=== PATIENT | female | born 1965 | race Caucasian/White ===

== ENCOUNTER 2017-04-13 02:49 | Emergency (ER) | payer OTHER ==
[2017-04-13 02:57] VITALS: TEMP 97.5
[2017-04-13] MEDS ORDERED: ONDANSETRON 4 MG/2 ML VIAL ONE (02:59)
[2017-04-13] MEDS ORDERED: NS 1,000 ML IV ONE ×2 (03:02→04:23)
[2017-04-13] MEDS ORDERED: ONDANSETRON 4 MG/2 ML VIAL IVP ONE (03:02)
[2017-04-13] MEDS ORDERED: HALOPERIDOL LACT 5 MG/ML INJ ONE (04:03)
[2017-04-13] MEDS ORDERED: HALOPERIDOL LACT 5 MG/ML INJ IVP ONE (04:22)
[2017-04-13 05:12] VITALS: RESP 16
--- NOTE | 2017-04-13 05:42 | EDPHY ---
H & P Stated Complaint: intoxicated, nauseated HPI/ROS: HPI The patient presents with nausea and vomiting after drinking heavily tonight. The patient had multiple alcoholic beverages throughout the course of the evening. Over the last few hours she is began vomiting and has felt very nauseated. The vomiting is nonbloody and nonbilious. It has been constant and is rated as severe. She has not had abdominal pain or fever. REVIEW OF SYSTEMS Constitutional: No fever, no chills. Eyes: No discharge. ENT: No sore throat. Cardiovascular: No chest pain, no palpitations. Respiratory: No cough, no shortness of breath. Gastrointestinal: See HPI Genitourinary: No hematuria. Musculoskeletal: No back pain. Skin: No rashes. Neurological: No headache. PMHx: Reported history of bronchitis in Lyme disease Soc Hx: Alcohol abuse PHYSICAL General Appearance: Alert, actively retching Eyes: Pupils equal and round no pallor or injection ENT, Mouth: Mucous membranes moist Respiratory: There are no retractions, lungs are clear to auscultation Cardiovascular: Regular rate and rhythm Gastrointestinal: Abdomen is soft and non-tender, no masses, bowel sounds normal Neurological: A&O, moves all extremities Skin: Warm and dry, no rashes Musculoskeletal: Neck is supple non tender Extremities: symmetrical, full range of motion Psychiatric: Patient is oriented X 3, there is no agitation Source: Patient Exam Limitations: No limitations - Personal History LMP (Females 10-55): Over 28 Days Ago Current Tetanus/Diphtheria Vaccine: Yes - Medical/Surgical History Hx Asthma: No Hx Chronic Respiratory Disease: No Hx Diabetes: No Hx Cardiac Disease: Yes Hx Renal Disease: No Hx Cirrhosis: No Hx Alcoholism: Yes Hx HIV/AIDS: No Hx Splenectomy or Spleen Trauma: No Other PMH: Bronchitis and pneumonia off and on. Has had the flu in the past. Has 2 bicuspid valves instead of 3. Intermittent stomach issues. Has had Lyme disease. - Social History Smoking Status: Never smoked Constitutional: Initial Vital Signs Temperature (C) 36.4 C 04/13/17 02:50 Heart Rate 65 04/13/17 02:50 Respiratory Rate 14 04/13/17 02:50 Blood Pressure 107/68 04/13/17 02:50 O2 Sat (%) 98 04/13/17 02:50 O2 Delivery Mode Room Air O2 (L/minute) 2 Allergies/Adverse Reactions: benzonatate [From Tessalon Perles] Allergy (Intermediate, Verified 11/02/13 10: 43) CHEST HEAVINESS, SHAKINESS ciprofloxacin [From Cipro] Adverse Reaction (Intermediate, Verified 11/02/13 10: 43) ciprofloxacin HCl [From Cipro] Adverse Reaction (Intermediate, Verified 10:43) BENADRYL - LIQUID FORM Allergy (Uncoded 11/02/13 10:43) SHAKING/LIP BLISTERS Home Medications: Medication Instructions Recorded NK [No Known Home Meds] 04/13/17 Medical Decision Making Differential Diagnosis: This is a 51-year-old female who presents with acute nausea and vomiting in the setting of heavy alcohol use. On exam, her abdominal exam is benign. Her vital signs are normal. Differential diagnosis includes most likely alcohol intoxication, other possibilities include pancreatitis or gastritis, however in the lack of any abdominal pain or tenderness I feel these are less likely. In the emergency room, the patient was treated with IV fluids, Zofran with some improvement in her symptoms. She had continued vomiting, thus she was given Haldol and another L of IV fluid with complete resolution of her symptoms. She will be discharged home. Departure - Departure Disposition: Home, Routine, Self-Care Clinical Impression: Alcoholic intoxication Qualifiers: Complication of substance-induced condition: uncomplicated Qualified Code(s): F10.120 - Alcohol abuse with intoxication, uncomplicated Vomiting Qualifiers: Vomiting type: unspecified Vomiting Intractability: non-intractable Nausea presence: with nausea Qualified Code(s): R11.2 - Nausea with vomiting, unspecified Condition: Good Instructions: Alcohol Intoxication (ED) Referrals: Virginia Betancourt MD [Medical Doctor] - As per Instructions
[2017-04-13] MEDS ORDERED: ONDANSETRON 4MG PREPACK#2 BTL TAKEHOME ONE (05:43)
[2017-04-13 06:38] VITALS: BP 98/53; PULSE 72; O2SAT 93
== END 2017-04-13 06:37 | disposition home or self-care (01) ==
DX: R11.2 Nausea with vomiting, unspecified (principal); F10.120 Alcohol abuse with intoxication, uncomplicated
CPT/HCPCS: 96374; J2405

== ENCOUNTER → 2018-01-21 | Outpatient (CLI) | payer OTHER | LOC: FIMAGING 12:05 | PROVIDERS: ATTEND Nurse Practitioner | DX: Z12.31 Encounter for screening mammogram for malignant neoplasm of breast (principal) ==

== ENCOUNTER → 2018-01-30 | Outpatient (CLI) | payer OTHER | LOC: CIMAGING 08:55 | PROVIDERS: ATTEND Surgery | DX: R22.2 Localized swelling, mass and lump, trunk (principal) ==